=== PATIENT | male | born 1995 | race Hispanic/Latino ===

== ENCOUNTER 2019-02-24 16:48 | Emergency (ER) | payer OTHER ==
[2019-02-24] MEDS ORDERED: ACETAMINOPHEN EXTRA STRENGTH 500 MG TABLET ONE (17:05)
[2019-02-24 17:24] LABS: RAPID GROUP A STREP NEGATIVE (NEGATIVE)
== END 2019-02-24 18:05 | disposition home or self-care (01) ==
LOC: EDH 16:48
DX: J06.9 Acute upper respiratory infection, unspecified (principal); R50.9 Fever, unspecified
CPT/HCPCS: 87804; 87880